=== PATIENT | female | born 1990 | race Caucasian/White ===

== ENCOUNTER 2024-02-14 13:27 | Emergency (ER) | payer MEDICAID ==
[~2024-02-14] VITALS: Ht 160 cm; Wt 86.0 kg
[2024-02-14 13:30] VITALS: BP 121/79; PULSE 96; RESP 14; TEMP 97.1; O2SAT 97
== END 2024-02-14 16:48 | disposition home or self-care (01) ==
LOC: ER 13:28
DX: Z30.019 Encounter for initial prescription of contraceptives, unspecified (principal); Z76.0 Encounter for issue of repeat prescription; Z88.8 Allergy status to other drugs, medicaments and biological substances
CPT/HCPCS: 99281